=== PATIENT | male | born 1985 | race Caucasian/White ===

== ENCOUNTER 2017-06-22 17:15 | Emergency (ER) ==
[2017-06-22 17:20] VITALS: BP 110/70; TEMP 97.4; BMI 26.7
--- NOTE | 2017-06-22 18:07 | ED.PDOC ---
General ED Provider: Dr. LULY CODY JR Chief Complaint: Neck Injury Stated Complaint: wrestling/playing with son last pm--son is 5 yrs--pt did somersault onto neck--now has pain to posterior neck-[ End ]last night 97.4 52 12 98 110/70 6/10 ibuprofen/ice/heating pad/light massage able to move all extremeties-sl headache[ End ] Time Seen by Physician: 18:06 Mode of Arrival: Walk-In Information Source: Patient Exam Limitations: No limitations Primary Care Provider: [facility] Nursing and Triage Documentation Reviewed and Agree: Yes Review of Systems - Review Of Systems Constitutional: Reports: No symptoms Eyes: Reports: No symptoms Ears, Nose, Mouth, Throat: Reports: No symptoms Respiratory: Reports: No symptoms Cardiac: Reports: No symptoms GI: Reports: No symptoms : Reports: No symptoms Musculoskeletal: Reports: Muscle pain, Neck pain (right paraspinal increase pain with ROM) Skin: Reports: No symptoms Neurological: Reports: No symptoms Endocrine: Reports: No symptoms Hematologic/Lymphatic: Reports: No symptoms All Other Systems: Other Past Medical History - Past Medical History Endocrine: Reports: None Cardiovascular: Reports: None Respiratory: Reports: None Hematological: Reports: None Gastrointestinal: Reports: None Genitourinary: Reports: None Neuro/Psych: Reports: None Musculoskeletal: Reports: None Cancer: Reports: None - Surgical History General Surgical History: Reports: None - Family History Family History: Reports: Unknown - Social History Smoking Status: Vaping Hx Substance Use: No Alcohol Screening: Occasionally 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 family Physical Exam - Physical Exam Appearance: Well-appearing Pain Distress: Moderate Eyes: ALIRIO, EOMI, Conjunctiva clear ENT: Ears normal, Nose normal, Oropharynx normal Neck: Supple Respiratory: Airway patent, Breath sounds clear, Breath sounds equal, Respirations nonlabored Cardiovascular: RRR, Pulses normal, No rub, No murmur GI/: Soft, Nontender, No masses, Bowel sounds normal, No Organomegaly Musculoskeletal: Normal strength, ROM intact, No edema, No calf tenderness Skin: Warm, Dry, Normal color Neurological: Sensation intact, Motor intact, Reflexes intact, Cranial nerves intact, Alert, Oriented Psychiatric: Affect appropriate, Mood appropriate Interpretation - Radiology Interpretation Radiology Interpretation By: Radiologist Radiology Results: Negative Exam Interpreted: CT Scan (neck) Critical Care Note - Critical Care Note Total Time (mins): 0 Course - Course Orders, Labs, Meds: Orders Category Date Time Status CT CERVICAL SPINE W/O CONTRAST Stat RADS 06/22/17 18:15 Completed Vital Signs: Temp Pulse Resp BP Pulse Ox 06/22/17 17:16 97.4 F L 52 L 12 110/70 98 Departure - Departure Time of Disposition: 18:09 Disposition: HOME SELF-CARE Discharge Problem: Injury of neck Instructions: Acute Neck Pain (ED), Cervical Strain (ED) Condition: Good Pt referred to PMD for follow-up: Yes Additional Instructions: ice 20 minutes three times a day may use soft collar to remember to move slowly expect improvement over 3 days and resolution over two weeks recheck PMD one week sooner if not improved may follow with [facility] Prescriptions: Hydrocodone Bit/Acetaminophen [[place] 7.5-325] 1 each PO Q6HR PRN #14 tablet PRN Reason: Severe Pain Cyclobenzaprine HCl [Flexeril] 5 mg PO TID PRN #15 tablet PRN Reason: Spasms Allergies/Adverse Reactions: Allergies No Known Allergies Allergy (Unverified 06/22/17 17:22) Home Medications: Ambulatory Orders Cyclobenzaprine HCl [Flexeril] 5 mg PO TID PRN #15 tablet 06/22/17 Hydrocodone Bit/Acetaminophen [[place] 7.5-325] 1 each PO Q6HR PRN #14 tablet
--- NOTE | 2017-06-22 18:57 | CT ---
Exam: CT cervical spine without contrast Clinical indication: Neck injury with pain TECHNIQUE: Axial unenhanced CT images from the upper thoracic spine through the skull base were obt ained followed by coronal and sagittal reformats. Findings: There is straightening of the normal cervical lordosis. Otherwise, the alignment of the cervical sp ine is within normal limits. There are no fractures, dislocations or other significant bony abnormalities. The disc spaces are well maintained. The visualized soft tissues and pulmonary parenchyma are unrem arkable. Impression: 1. No acute cervical fracture. 2. Straightening of the normal cervical lordosis, which could be positional or related to underlyin g soft tissue abnormality/injury.
== END 2017-06-22 19:16 | disposition home or self-care (01) ==
LOC: ED 17:15
DX: S19.9XXA Unspecified injury of neck, initial encounter (principal); W50.0XXA Accidental hit or strike by another person, initial encounter
CPT/HCPCS: 99283